=== PATIENT | male | born 1965 | race Two or more races ===

== ENCOUNTER 2017-03-07 14:39 | Emergency (ER) | payer OTHER ==
--- NOTE | ~2017-03-07 | CR72 ---
[facility] A Service of [facility] & [facility] RADIOLOGY TEXT RESULTS PATIENT: TWAN ZIEGLER LOCATION: [facility] : 65 UNIT #: [id number] AGE: [address]: Arnel Ribeiro MD SEX: M ORDER DR: [id number] [place], [place] [address] [id number] MR#: [id number] Acc #: [id number] NAME: TWAN ZIEGLER : 1965 SEX: M STUDY DATE/TIME: 03/07/2017 14:37 UNIT: [facility] ROOM: STUDY DESCRIPTION: CR Chest Single View Portable Attending Physician: Arnel Ribeiro M.D. Ordering Physician: Arnel Ribeiro M.D. Primary Care Physician: Primary Care Physician No MEDICAL IMAGING REPORT This report is preliminary unless electronic signature is present EXAM Portable chest, 03/07/2017 HISTORY 51-year-old male with midsternal chest pain beginning last night. Shortness of breath. COMPARISON None. FINDINGS Frontal chest demonstrates clear lungs. No pleural effusion or pneumothorax. Heart size and mediastinum within normal limits. Pulmonary vasculature unremarkable. IMPRESSION No acute cardiopulmonary findings. Dictated by... Rafita Ramirez M.D. THIS IS AN ELECTRONICALLY VERIFIED REPORT Rafita Ramirez M.D. at 03/08/2017 4:48 PM Lizy TD: 03/07/2017 21:35 JOB #: [id number] MEDICAL IMAGING REPORT Page 1 of 1 COPY
--- NOTE | ~2017-03-07 | EKG ---
PATIENT: TWAN ZIEGLER UNIT #: [id number] Ventricular Rate: 64 BPM Atrial Rate: 64 BPM P-R Interval: 132 ms QRS Duration: 102 ms Q-T Interval: 428 ms QTC Calculation(Bezet): 441 ms P [place]: 52 degrees Calculated R [place]: 83 degrees Calculated T [place]: 69 degrees Diagnosis Line: Sinus rhythm with marked sinus arrhythmia Diagnosis Line: Anterior infarct , possibly acute Diagnosis Line: ACUTE VA / STEMI Diagnosis Line: Abnormal ECG Diagnosis Line: Diagnosis Line: Confirmed by DEMETRIS WALKER MD ([id number]) on 03/07/2017 Diagnosis Line: 9:22:19 PM INTERPRETING MD: DENISE GUAN
[2017-03-07 14:44] LABS: BASOPHIL# 0.1 X10e3 (0-0.3); BASOPHIL% 0.7 % (0-2.5); EOSINOPHIL% 0.2 % (0.0-7.0); HEMATOCRIT 54.5 % (38.0-50.0); HEMOGLOBIN 17.9 gm/dL (13.0-16.0); LYMPHOCYTE% 19.9 % (17.0-45.0); MEAN CELL VOLUME 95.2 FL (83-96); MEAN CORPUSCULAR HEMOGLOBIN 31.3 PG (28-34); MEAN CORPUSCULAR HGB CONC 32.9 g/dL (30-36); MEAN PLATELET VOLUME 9.8 FL (6.5-11.5); MONOCYTE% 9.8 % (3.0-12.0); NEUTROPHIL% 69.4 % (40-75); PLATELET COUNT 142 X10e3 (140-420); RED BLOOD COUNT 5.73 X10e (3.90-5.60); RED CELL DISTRIBUTION WIDTH 14.3 % (11.0-15.5); WHITE BLOOD COUNT 10.1 X10e3 (4.0-10.5)
[2017-03-07 14:54] LABS: INR 1.1; PARTIAL THROMBOPLASTIN TIME 29.8 SECONDS (23.5-31.3); PROTHROMBIN TIME (PATIENT) 11.4 SECONDS (9.6-11.5)
[2017-03-07 15:01] LABS: DIFF IND NO
[2017-03-07 15:03] LABS: ALBUMIN SERUM 4.1 g/dL (3.5-5.0); BILIRUBIN, DIRECT 0.2 mg/dL (0.0-0.2); BILIRUBIN,INDIRECT 1.2 mg/dL (0.0-0.9); BILIRUBIN,TOTAL 1.4 mg/dL (0.2-2.0); BUN/CREATININE RATIO 8.18; CALCIUM SERUM 9.1 mg/dL (8.4-10.2); CREATININE SERUM 1.1 mg/dL (0.6-1.4); GLOM FILT RATE Estimated 77.3 mL/min (>60); POTASSIUM 3.9 mmol/L (3.5-5.1); PROTEIN TOTAL SERUM 7.7 g/dL (6.0-8.3)
[2017-03-07 15:06] LABS: POC - CKMB 71.8 ng/mL (0.0-7.9); POC - TROPONIN 17.3 ng/mL (<=0.05)
== END 2017-03-07 14:58 | disposition short-term general hospital (02) ==
LOC: CED 14:39
PROVIDERS: Emergency Medicine
DX: I21.3 ST elevation (STEMI) myocardial infarction of unspecified site (principal); F17.210 Nicotine dependence, cigarettes, uncomplicated; Z90.89 Acquired absence of other organs
CPT/HCPCS: 71010; 80048; 80076; 82553; 84484; 85025; 85610; 85730; 93005; 99285; J1644